=== PATIENT | male | born 1935 | race Caucasian/White ===

== ENCOUNTER 2018-10-05 06:08 | Emergency (ER) | payer OTHER, BC ==
[~2018-10-05] VITALS: Ht 180.3 cm; Wt 83.5 kg
[2018-10-05 06:13] VITALS: Ht 180.3 cm; Wt 83.5 kg
[2018-10-05 06:45] VITALS: BP 137/90
== END 2018-10-05 06:45 | disposition home or self-care (01) ==
LOC: ED 06:08
DX: S61.412A Laceration without foreign body of left hand, initial encounter (principal); J45.909 Unspecified asthma, uncomplicated; I10 Essential (primary) hypertension; E78.00 Pure hypercholesterolemia, unspecified; Z98.890 Other specified postprocedural states; X58.XXXA Exposure to other specified factors, initial encounter; Y93.89 Activity, other specified; Y92.89 Other specified places as the place of occurrence of the external cause; Y99.8 Other external cause status

== ENCOUNTER 2019-01-20 08:55 | Emergency (ER) | payer OTHER, BC ==
[~2019-01-20] VITALS: Ht 180.3 cm; Wt 77.1 kg
[2019-01-20 09:14] VITALS: BP 114/62; Ht 180.3 cm; Wt 77.1 kg
== END 2019-01-20 12:53 | disposition home or self-care (01) ==
LOC: ED 08:55
DX: S39.011A Strain of muscle, fascia and tendon of abdomen, initial encounter (principal); J45.909 Unspecified asthma, uncomplicated; I10 Essential (primary) hypertension; E78.00 Pure hypercholesterolemia, unspecified; Z98.890 Other specified postprocedural states; Z95.1 Presence of aortocoronary bypass graft; X58.XXXA Exposure to other specified factors, initial encounter; Y93.89 Activity, other specified; Y92.89 Other specified places as the place of occurrence of the external cause; Y99.8 Other external cause status
CPT/HCPCS: J1885